=== PATIENT | female | born 1935 | race Asian ===

== ENCOUNTER 2020-04-27 21:34 | Inpatient (IN) | payer MEDICARE ==
[~2020-04-27] VITALS: Ht 137.2 cm; Wt 40.6 kg
[2020-04-27 21:35] VITALS: BP 127/69
--- NOTE | 2020-04-27 21:41 | NUR ---
ED Nurse Note: Patient was brought in by ambulance RA [id number] from home with complaints of fall. Per ems patient was pointing her left hip. Per EMS patient did not hit her head. Patient is alert but maori speaking only. Patient placed on monitor bed
--- NOTE | 2020-04-27 21:44 | NUR ---
ED Nurse Note: ERMD at bedside
--- NOTE | 2020-04-27 21:44 | NUR ---
ED Nurse Note: Xray at bedside
--- NOTE | 2020-04-27 21:48 | Emergency Room Report ---
History of Present Illness General Chief Complaint: Multiple Trauma/Fall Source: Patient, EMS Present Illness HPI This is an 84-year-old Khmer speaking female with history of high blood pressure. She presents with chief complaint of left hip pain. She was getting dressed and slipped and fell onto the left hip. She did not hit her head. Unable to get up and walk because of the pain. Pain is to the left hip. Worse with movement. Better with rest. No other injury. No nausea no vomiting. With movement pain is 8 out of 10. With rest pain is 2 out of 10. Allergies: Coded Allergies: UNABLE TO ASSESS (Unverified , 04/27/20) PATIENT IS BULGARIAN SPEAKING COVID-19 Screening Contact w/high risk pt: No Recent Travel to affected area: No Experienced COVID-19 symptoms?: No COVID-19 Testing performed [employer]LE [employer]: No Patient History Past Medical History: see triage record, old chart reviewed, HTN Past Surgical History: none Pertinent Family History: none Last Menstrual Period: NA Now: No Immunizations: other Reviewed Nursing Documentation: PMH: Agreed; PSxH: Agreed Nursing Documentation-PMH Past Medical History: No History, Except For Hx Cerebrovascular Accident: Yes Review of Systems Eye: Denies: eye pain, blurred vision ENT: Denies: ear pain, nose congestion, throat swelling Respiratory: Denies: cough, shortness of breath Cardiovascular: Denies: chest pain, palpitations Gastrointestinal: Denies: abdominal pain, diarrhea, nausea, vomiting Musculoskeletal: Reports: joint pain; Denies: back pain Skin: Denies: rash Neurological: Denies: headache, numbness Endocrine: Denies: increased thirst, increased urine Hematologic/Lymphatic: Denies: easy bruising All Other Systems: negative except mentioned in HPI Physical Exam Vital Signs Date Time Temp Pulse Resp B/P (MAP) Pulse Ox O2 Delivery O2 Flow Rate FiO2 04/27/20 21:29 98.2 90 16 127/69 (88) 88 Room Air Vitals normal Sp02 EP Interpretation: reviewed, normal General Appearance: well appearing, no apparent distress, alert, thin Head: normocephalic, atraumatic Eyes: bilateral eye PERRL, bilateral eye EOMI ENT: hearing grossly normal, normal pharynx Neck: full range of motion, supple, no meningismus Respiratory: chest non-tender, lungs clear, normal breath sounds Cardiovascular #1: regular rate, rhythm, no murmur Gastrointestinal: normal bowel sounds, non tender, no mass, no organomegaly, no bruit, non-distended Musculoskeletal: back normal, tender - Tenderness to left hip Psychiatric: mood/affect normal Medical Decision Making Diagnostic Impression: Primary Impression: Pelvic ring fracture Qualified Codes: S32.810A - Multiple fractures of pelvis with stable disruption of pelvic ring, initial encounter for closed fracture ER Course This is an elderly Khmer speaking female fell with a pelvic fracture. No hip fracture. Because of her pain she is unable to ambulate. Will admit for further work-up with physical therapy and possible rehab placement. I discussed the case with Dr. Naik for admission. Other X-Ray Diagnostic Results Other X-Ray Diagnostic Results : X-Ray ordered: Left hip x-rays # of Views/Limited Vs Complete: 3 View Indication: Pain EP Interpretation: Yes Interpretation: no dislocation, no soft tissue swelling, other - left pubic rami frx. Impression: Other - pelvic frx Electronically Signed by: Santiago Chavira MD CT/MRI/US Diagnostic Results CT/MRI/US Diagnostic Results : Imaging Test Ordered: CT pelvis Impression Read by radiologist. Nondisplaced fracture of the left superior pubic ramus. Comminuted fracture of the midshaft of the left inferior pubic ramus. Nondisplaced left sacral alar fracture. Last Vital Signs Date Time Temp Pulse Resp B/P (MAP) Pulse Ox O2 Delivery O2 Flow Rate FiO2 04/27/20 21:29 98.2 90 16 127/69 (88) 88 Room Air Status: improved Disposition: ADMITTED INPATIENT Condition: Serious Santiago Chavira MD Apr 27, 2020 21:48
[2020-04-27] MEDS ORDERED: TENORMIN100 MG ORAL (21:59)
[2020-04-27] MEDS ORDERED: AMLODIPINE BESY10 MG ORAL (21:59)
[2020-04-27] MEDS ORDERED: Morphine Sulfate 2mg/ml Inj(IV/IM USE ONLY) IVP ONE (22:00)
--- NOTE | 2020-04-27 22:38 | Diagnostic Imaging Report ---
EXAM: CT Pelvis Without Intravenous Contrast CLINICAL HISTORY: TRAUMA TECHNIQUE: Axial computed tomography images of the pelvis without intravenous contrast. CTDI is 4.1 mGy and DLP is 129.2 mGy-cm. One or more of the following dose reduction techniques were used: automated exposure control, adjustment of the mA and/or kV according to patient size, use of iterative reconstruction technique.. Coronal and sagittal reconstructions are performed COMPARISON: Pelvic radiographs from today FINDINGS: Bowel: Unremarkable. No obstruction. No mucosal thickening. Appendix: No findings to suggest acute appendicitis. Intraperitoneal space: Unremarkable. No free air. No significant fluid collection. Bladder: Unremarkable. No stones. Reproductive: Unremarkable as visualized. Bones/joints: Nondisplaced fracture of left superior pubic ramus near pubic symphysis, mildly impacted. Comminuted fracture of midshaft of left inferior pubic ramus with 3 mm displacement. Nondisplaced left sacral alar fracture on series 12 image 24. No extension to neuroforamen. Osteopenia. Grade 1 anterolisthesis of L4 on L5 No dislocation. Soft tissues: No significant soft tissue hematoma. Vasculature: Small amount of atherosclerotic calcifications. Lymph nodes: Unremarkable. No enlarged lymph nodes. IMPRESSION: 1. Nondisplaced fracture of left superior pubic ramus near pubic symphysis, mildly impacted. 2. Comminuted fracture of midshaft of left inferior pubic ramus with 3 mm displacement. 3. Nondisplaced left sacral alar fracture
[2020-04-27 22:49] VITALS: BP 129/61
[2020-04-27 22:52] LABS: APPEARANCE,URINE CLEAR; BILIRUBIN, URINE NEGATIVE (NEGATIVE); COLOR,URINE PALE YELLOW; GLUCOSE, URINE (UA) NEGATIVE (NEGATIVE); KETONES,URINE NEGATIVE (NEGATIVE); LEUKOCYTE ESTERASE ,URINE NEGATIVE (NEGATIVE); NITRITE,URINE NEGATIVE (NEGATIVE); PH,URINE 7 (4.5-8.0); PROTEIN,URINE NEGATIVE (NEGATIVE); UROBILINOGEN,URINE NORMAL MG/DL (0.0-1.0)
[2020-04-27 22:52] LABS: EOSINOPHILS % (AUTO) 0.8 % (0.0-3.0); HEMATOCRIT 40.5 % (37.0-47.0); HEMOGLOBIN 12.9 G/DL (12.0-16.0); LYMPHOCYTES % (AUTO) 19.4 % (20.0-45.0); MEAN CORPUSCULAR VOLUME 90 FL (80-99); MONOCYTES % (AUTO) 4.8 % (1.0-10.0); NEUTROPHILS % (AUTO) 74.2 % (45.0-75.0); PLATELET COUNT 205 K/UL (150-450); RED BLOOD COUNT 4.48 M/UL (4.20-5.40); WHITE BLOOD COUNT 7.3 K/UL (4.8-10.8)
[2020-04-27 22:58] LABS: ANION GAP 10 mmol/L (5-15); BLOOD UREA NITROGEN 12 mg/dL (7-18); CALCIUM 8.5 MG/DL (8.5-10.1); CARBON DIOXIDE 27 MMOL/L (21-32); CHLORIDE 103 MMOL/L (98-107); CREATININE 0.8 MG/DL (0.55-1.30); SODIUM 140 MMOL/L (136-145)
--- NOTE | 2020-04-27 23:15 | NUR ---
patient's daughter, gary [phone]
--- NOTE | 2020-04-27 23:55 | NUR ---
ED Nurse Note: Called and gave report to Ciara ROBERTS.
--- NOTE | 2020-04-27 23:58 | NUR ---
ED Nurse Note: PATIENT LAST BOWEL MOVEMENT WAS THIS MORNING, PATIENT CLEARED FOR TRANSPORT TO FLOOR WITH BELONGINGS SHEET.
[2020-04-28] VITALS (7 sets, daily range): BP systolic 115–141; BP diastolic 62–78
[2020-04-28] MEDS ORDERED: Morphine Sulfate 2mg/ml Inj(IV/IM USE ONLY) IVP PRN
--- NOTE | 2020-04-28 | NUR ---
NURSE NOTES: Received phone report from BRENDA Wyatt RN.
--- NOTE | 2020-04-28 00:10 | NUR ---
NURSE NOTES: Patient admitted to 301-1 via gurney, transferred to bed with staff assistance. German speaking nurse here assisting with history taking. Patient is alert and oriented x4. Oriented to room and call light. No skin issues noted. O2 on 2L NC. Jean-Baptiste catheter was placed in ER, draining clear yellow urine. Saline lock on RAC, intact. Bed in low position, locked, side rails up x2, bed alarm on, call light within reach. Encouraged to call as needed. Will contact physician for admitting orders.
[2020-04-28] MEDS ORDERED: HYDROcodone/Acetamin 10/325 tab ORAL PRN (00:45)
[2020-04-28] MEDS: HYDROcodone/Acetamin 5/325 tab ORAL PRN ×3 (01:52→21:29)
[2020-04-28 05:52] LABS: BASOPHILS % (AUTO) 0.3 % (0.0-2.0); EOSINOPHILS % (AUTO) 0.7 % (0.0-3.0); HEMATOCRIT 34.9 % (37.0-47.0); HEMOGLOBIN 12.6 G/DL (12.0-16.0); LYMPHOCYTES % (AUTO) 10.9 % (20.0-45.0); MEAN CORPUSCULAR VOLUME 83 FL (80-99); MONOCYTES % (AUTO) 5.3 % (1.0-10.0); NEUTROPHILS % (AUTO) 82.8 % (45.0-75.0); PLATELET COUNT 183 K/UL (150-450); RED BLOOD COUNT 4.21 M/UL (4.20-5.40); RED CELL DISTRIBUTION WIDTH 11.8 % (11.6-14.8); WHITE BLOOD COUNT 9.5 K/UL (4.8-10.8)
--- NOTE | 2020-04-28 06:00 | NUR ---
NURSE NOTES: Patient dozed off and on last night. Still has pain, but refused pain medication.
[2020-04-28 06:04] LABS: ANION GAP 7 mmol/L (5-15); BLOOD UREA NITROGEN 11 mg/dL (7-18); CALCIUM 7.9 MG/DL (8.5-10.1); CARBON DIOXIDE 28 MMOL/L (21-32); CHLORIDE 104 MMOL/L (98-107); CREATININE 0.7 MG/DL (0.55-1.30); PHOSPHORUS 3.7 MG/DL (2.5-4.9); POTASSIUM 4.2 MMOL/L (3.5-5.1); SODIUM 139 MMOL/L (136-145)
--- NOTE | 2020-04-28 07:15 | NUR ---
HAND-OFF: Report given to ARMANDO Villegas. Rounds done.
--- NOTE | 2020-04-28 07:46 | NUR ---
NURSE NOTES: Patient awake and alert, pedal pulses bilateral feet strong,feet warm to touch.patient sitting up in bed patient ate breakfast.Call light within reach.
--- NOTE | 2020-04-28 08:54 | Diagnostic Imaging Report ---
Indication: Pain, status post fall Technique: 2 views of the left hip Comparison: none Findings: There is a nondisplaced fracture of the left inferior pubic ramus. There is more questionable irregularity of the superior pubic ramus. No evidence of hip fracture. There are mild degenerative proliferative changes of the left hip joint Impression: Positive for left inferior and possibly superior rami fractures This agrees with the preliminary interpretation reported by the emergency room physician in the electronic medical record
--- NOTE | 2020-04-28 12:41 | NUR ---
CASE MANAGEMENT: INITIAL REVIEW 84YR OLD FEMALE BIBA HOME CC: FALL SI:PELVIC RING FRACTURE 98.3 90 16 127/69 88% ON RA BG 128 IS:IV MORPHINE SULFATE X1 IV ZOFRAN X1 XRAY Hip Routine 2v+ w/Pelv-L: Pain, status post fall-Positive for left inferior and possibly superior rami fractures CT Pelvis no Contrast: TRAUMA- Nondisplaced fracture of left superior pubic ramus near pubic symphysis, mildly impacted. Comminuted fracture of midshaft of left inferior pubic ramus with 3 mm displacement. Nondisplaced left sacral alar fracture \: 3E MED SURG UNIT PLAN: ORTHO CONSULT PT EVAL AND THERAPY CASE MANAGEMENT: REVIEW 04/28/20 SI:PELVIC RING FRACTURE 98.0 77 18 141/70 96% ON 2L NC CA+ 7.9 IS:NORVASC PO QD TENORMIN PO QD NORCO PO Q6HR/PRN \: 3E MED SURG UNIT PLAN: ORTHO CONSULT PT EVAL AND THERAPY PAIN MANAGEMENT AM LABS
--- NOTE | 2020-04-28 13:26 | Consultation ---
History of Present Illness General Chief Complaint: Multiple Trauma/Fall Present Illness HPI Ms. Castaneda is a 84 year old female with HTN presenting with left hip pain after slipping and falling at home while changing clothes. denies any head trauma or LOC. Lives with and kids. Currently complaining of pain, mostly with ambulation, minimal at rest. denies any other symptoms such as cough, f/c, n/v, chest pain, SOB, abd pain. Allergies: Coded Allergies: No Known Allergies (Unverified , 04/27/20) Medication History Scheduled Amlodipine Besylate* (Amlodipine Besylate*), 10 MG ORAL DAILY, (Reported) Atenolol (Tenormin), 50 MG ORAL DAILY, (Reported) Patient History Healthcare decision maker Resuscitation status Advanced Directive on File Review of Systems All Other Systems: negative except mentioned in HPI Physical Exam General Appearance: WD/WN, no apparent distress Lines, tubes and drains: peripheral HEENT: normocephalic, atraumatic, anicteric Neck: non-tender, normal alignment, supple Respiratory/Chest: chest wall non-tender, lungs clear Cardiovascular/Chest: normal peripheral pulses, normal rate, regular rhythm Abdomen: normal bowel sounds, non tender, soft Extremities: non-tender Skin Exam: normal pigmentation Neurologic: alert, oriented x 3 Last 24 Hour Vital Signs Date Time Temp Pulse Resp B/P (MAP) Pulse Ox O2 Delivery O2 Flow Rate FiO2 04/28/20 12:00 98.8 79 18 128/64 (85) 98 04/28/20 09:00 Room Air 04/28/20 08:41 81 137/64 04/28/20 08:41 81 137/64 04/28/20 08:40 81 137/64 (88) 04/28/20 08:00 98.0 77 18 141/70 (93) 96 04/28/20 04:00 98.1 77 18 115/62 (79) 94 04/28/20 00:30 Nasal Cannula 2.0 04/28/20 00:15 97.7 84 18 138/78 (98) 96 88 04/27/20 23:56 98.0 74 18 136/64 99 Room Air 2.0 95 74 04/27/20 22:49 98.0 79 20 129/61 98 Room Air 2.0 04/27/20 22:49 90 16 Room Air 95 04/27/20 22:43 98.0 04/27/20 21:35 98.2 16 127/69 88 Room Air 04/27/20 21:29 98.2 90 16 127/69 (88) 88 Room Air Intake and Output 04/27/20 04/28/20 19:00 07:00 Intake Total 240 ml Output Total 750 ml Balance -510 ml Intake Oral 240 ml Output Urine Total 750 ml # Voids 1 Laboratory Tests Test 04/27/20 22:30 04/27/20 22:43 04/28/20 05:25 White Blood Count 7.3 K/UL (4.8-10.8) 9.5 K/UL (4.8-10.8) Red Blood Count 4.48 M/UL (4.20-5.40) 4.21 M/UL (4.20-5.40) Hemoglobin 12.9 G/DL (12.0-16.0) 12.6 G/DL (12.0-16.0) Hematocrit 40.5 % (37.0-47.0) 34.9 % (37.0-47.0) L Mean Corpuscular Volume 90 FL (80-99) 83 FL (80-99) Mean Corpuscular Hemoglobin 28.8 PG (27.0-31.0) 30.0 PG (27.0-31.0) Mean Corpuscular Hemoglobin Concent 31.9 G/DL (32.0-36.0) L 36.1 G/DL (32.0-36.0) H Red Cell Distribution Width 13.0 % (11.6-14.8) 11.8 % (11.6-14.8) Platelet Count 205 K/UL (150-450) 183 K/UL (150-450) Mean Platelet Volume 8.6 FL (6.5-10.1) 6.5 FL (6.5-10.1) Neutrophils (%) (Auto) 74.2 % (45.0-75.0) 82.8 % (45.0-75.0) H Lymphocytes (%) (Auto) 19.4 % (20.0-45.0) L 10.9 % (20.0-45.0) L Monocytes (%) (Auto) 4.8 % (1.0-10.0) 5.3 % (1.0-10.0) Eosinophils (%) (Auto) 0.8 % (0.0-3.0) 0.7 % (0.0-3.0) Basophils (%) (Auto) 1.0 % (0.0-2.0) 0.3 % (0.0-2.0) Sodium Level 140 MMOL/L (136-145) 139 MMOL/L (136-145) Potassium Level 4.0 MMOL/L (3.5-5.1) 4.2 MMOL/L (3.5-5.1) Chloride Level 103 MMOL/L (98-107) 104 MMOL/L (98-107) Carbon Dioxide Level 27 MMOL/L (21-32) 28 MMOL/L (21-32) Anion Gap 10 mmol/L (5-15) 7 mmol/L (5-15) Blood Urea Nitrogen 12 mg/dL (7-18) 11 mg/dL (7-18) Creatinine 0.8 MG/DL (0.55-1.30) 0.7 MG/DL (0.55-1.30) Estimat Glomerular Filtration Rate > 60 mL/min (>60) > 60 mL/min (>60) Glucose Level 128 MG/DL (74-106) H 106 MG/DL (74-106) Calcium Level 8.5 MG/DL (8.5-10.1) 7.9 MG/DL (8.5-10.1) L Urine Color Pale yellow Urine Appearance Clear Urine pH 7 (4.5-8.0) Urine Specific [place] 1.010 (1.005-1.035) Urine Protein Negative (NEGATIVE) Urine Glucose (UA) Negative (NEGATIVE) Urine Ketones Negative (NEGATIVE) Urine Blood Negative (NEGATIVE) Urine Nitrite Negative (NEGATIVE) Urine Bilirubin Negative (NEGATIVE) Urine Urobilinogen Normal MG/DL (0.0-1.0) Urine Leukocyte Esterase Negative (NEGATIVE) Urine RBC 0-2 /HPF (0 - 2) Urine WBC 0 /HPF (0 - 2) Urine Squamous Epithelial Cells Few /LPF (NONE/OCC) Urine Bacteria None /HPF (NONE) Phosphorus Level 3.7 MG/DL (2.5-4.9) Magnesium Level 2.1 MG/DL (1.8-2.4) Height (Feet): 4 Height (Inches): 6.00 Weight (Pounds): 90 Medications Current Medications Medications (Trade) Dose Ordered Sig/Blu Route PRN Reason Start Time Stop Time Status Last Admin Dose Admin Acetaminophen (Tylenol) 650 mg Q6H PRN ORAL Mild Pain (Pain Scale 1-3) 04/28/20 01:15 05/28/20 01:14 Acetaminophen/ Hydrocodone Bitart ([place] 10/325) 1 tab Q6H PRN ORAL Pain Scale (6-10) 04/28/20 00:45 05/05/20 00:44 Acetaminophen/ Hydrocodone Bitart ([place] 5/325) 1 tab Q6H PRN ORAL For Pain 04/28/20 00:45 05/05/20 00:44 04/28/20 08:46 Amlodipine Besylate (Norvasc) 10 mg DAILY ORAL 04/28/20 09:00 05/28/20 08:59 04/28/20 08:41 Atenolol (Tenormin) 50 mg DAILY ORAL 04/28/20 09:00 05/28/20 08:59 04/28/20 08:41 Assessment/Plan Diagnosis [place] I: #s/p fall #left hip pain #Left pubic fracture #Decontioning #HTN -imaging + for left pelvic rami fracture, superior and inferior. -ortho consulted -> non-surgical management. -early mobilization with PT. -f/u xrays in 3 weeks. -contionue home amlodipine 10 daily -continue home atenolol 5 daily Time spent on encounter, 70 mins, 35 mins spent on counseling and coordination of care. Celio Naik M.D. Apr 28, 2020 13:26
--- NOTE | 2020-04-28 14:04 | NUR ---
DISCHARGE PLANNING: PATIENT REFERRED TO [facility] T:[phone] F: [phone] CM WILL F/U
--- NOTE | 2020-04-28 14:15 | Consultation ---
Consult Note Consult Note patient seen and evaluated. [place] Superior and Inferior pubic rami fax. Stable. non-surgical treatment and early mobilization with PT, 75% weight bearing LLE. F/u for Xrays in 3 weeks. Christopher Segal MD Apr 28, 2020 14:15
--- NOTE | 2020-04-28 14:50 | NUR ---
P.T Note: P.T evaluation completed and tx initiated. Please refer to P.T evaluation for current functional status. Pt is alert, O x 4, pleasant and cooperative. Pt is limited by fear of mobility due to c/o pain in the L hip/groin aggravated by movement initiation which affects mobility performance and independence. Pt currently requires MOD A X 1 and extended time to initiate and complete supine to/from sitting, sitting to/from standing using the FWW. Pt was able to ambulate using the FWW with MIN A X 1 where distance of limited only to 12 ft due to fatigue and pain in the L hip/groin area. Pt should benefit from skilled P.T service to increase mobility independence and safety. Recommend DC to home with follow up home P.T if 24 hr care is available at home otherwise SNF for short term rehab. Thank you for this referral.
--- NOTE | 2020-04-28 17:07 | History and Physical ---
History of Present Illness General Date patient seen: Apr 28, 2020 Reason for Hospitalization: Multiple Trauma/Fall Present Illness HPI Ms. Castaneda is a 84 year old female with HTN presenting with left hip pain after slipping and falling at home while changing clothes. denies any head trauma or LOC. Lives with and kids. Currently complaining of pain, mostly with ambulation, minimal at rest. denies any other symptoms such as cough, f/c, n/v, chest pain, SOB, abd pain. Allergies: Coded Allergies: No Known Allergies (Unverified , 04/27/20) COVID-19 Screening Contact w/high risk pt: No Recent Travel to affected area: No Experienced COVID-19 symptoms?: No Medication History Scheduled Amlodipine Besylate* (Amlodipine Besylate*), 10 MG ORAL DAILY, (Reported) Atenolol (Tenormin), 50 MG ORAL DAILY, (Reported) Patient History Healthcare decision maker Resuscitation status Advanced Directive on File Review of Systems Constitutional: Denies: no symptoms, see HPI, chills, sweats, fever, malaise, weakness, other Eye: Denies: no symptoms, see HPI, eye pain, blurred vision, tearing, double vision, nose pain, nose congestion, acuity changes, discharge, other ENT: Denies: no symptoms, see HPI, ear pain, ear discharge, nose pain, nose congestion, throat pain, throat swelling, mouth pain, hearing loss, nasal discharge, other Respiratory: Denies: no symptoms, see HPI, cough, orthopnea, shortness of breath, stridor, wheezing, [place], sputum, other Cardiovascular: Denies: no symptoms, see HPI, chest pain, edema, palpitations, syncope, PND, other Gastrointestinal: Denies: no symptoms, see HPI, abdominal pain, constipation, diarrhea, nausea, vomiting, melena, hematemesis, other Genitourinary: Denies: no symptoms, see HPI, discharge, dysuria, frequency, hematuria, pain, retention, incontinence, urgency, vag bleed/dc, other Musculoskeletal: Reports: no symptoms, see HPI, back pain, gout, joint pain, joint swelling, muscle pain, muscle stiffness, other - left hip pain Skin: Denies: no symptoms, see HPI, rash, change in color, change in hair/nails , dryness, lesions, other Psychiatric: Denies: no symptoms, see HPI, prior hx, anxiety, depressed feelings, emotional problems, SI, HI, hallucinations, other Neurological: Denies: no symptoms, see HPI, headache, numbness, paresthesia, seizure, tingling, tremors, focal weakness, syncope, dizziness, other Endocrine: Denies: no symptoms, see HPI, excessive sweating, flushing, intolerance to temperature, increased thirst, increased urine, unexplained weight loss, other Hematologic/Lymphatic: Denies: no symptoms, see HPI, anemia, blood clots, easy bleeding, easy bruising, swollen glands, diathesis, other Physical Exam General Appearance: no apparent distress, alert HEENT: normocephalic, atraumatic Neck: supple Respiratory/Chest: lungs clear, normal breath sounds, no respiratory distress Cardiovascular/Chest: normal rate, regular rhythm Abdomen: non tender, soft Extremities: other - left hip tenderness, weakness due to pain Neurologic: alert, oriented x 3 Last 24 Hour Vital Signs Date Time Temp Pulse Resp B/P (MAP) Pulse Ox O2 Delivery O2 Flow Rate FiO2 04/28/20 12:00 98.8 79 18 128/64 (85) 98 04/28/20 09:00 Room Air 04/28/20 08:41 81 137/64 04/28/20 08:41 81 137/64 04/28/20 08:40 81 137/64 (88) 04/28/20 08:00 98.0 77 18 141/70 (93) 96 04/28/20 04:00 98.1 77 18 115/62 (79) 94 04/28/20 00:30 Nasal Cannula 2.0 04/28/20 00:15 97.7 84 18 138/78 (98) 96 88 04/27/20 23:56 98.0 74 18 136/64 99 Room Air 2.0 95 74 04/27/20 22:49 98.0 79 20 129/61 98 Room Air 2.0 04/27/20 22:49 90 16 Room Air 95 04/27/20 22:43 98.0 04/27/20 21:35 98.2 16 127/69 88 Room Air 04/27/20 21:29 98.2 90 16 127/69 (88) 88 Room Air Intake and Output 04/27/20 04/28/20 19:00 07:00 Intake Total 240 ml Output Total 750 ml Balance -510 ml Intake Oral 240 ml Output Urine Total 750 ml # Voids 1 Laboratory Tests Test 04/27/20 22:30 04/27/20 22:43 04/28/20 05:25 White Blood Count 7.3 K/UL (4.8-10.8) 9.5 K/UL (4.8-10.8) Red Blood Count 4.48 M/UL (4.20-5.40) 4.21 M/UL (4.20-5.40) Hemoglobin 12.9 G/DL (12.0-16.0) 12.6 G/DL (12.0-16.0) Hematocrit 40.5 % (37.0-47.0) 34.9 % (37.0-47.0) L Mean Corpuscular Volume 90 FL (80-99) 83 FL (80-99) Mean Corpuscular Hemoglobin 28.8 PG (27.0-31.0) 30.0 PG (27.0-31.0) Mean Corpuscular Hemoglobin Concent 31.9 G/DL (32.0-36.0) L 36.1 G/DL (32.0-36.0) H Red Cell Distribution Width 13.0 % (11.6-14.8) 11.8 % (11.6-14.8) Platelet Count 205 K/UL (150-450) 183 K/UL (150-450) Mean Platelet Volume 8.6 FL (6.5-10.1) 6.5 FL (6.5-10.1) Neutrophils (%) (Auto) 74.2 % (45.0-75.0) 82.8 % (45.0-75.0) H Lymphocytes (%) (Auto) 19.4 % (20.0-45.0) L 10.9 % (20.0-45.0) L Monocytes (%) (Auto) 4.8 % (1.0-10.0) 5.3 % (1.0-10.0) Eosinophils (%) (Auto) 0.8 % (0.0-3.0) 0.7 % (0.0-3.0) Basophils (%) (Auto) 1.0 % (0.0-2.0) 0.3 % (0.0-2.0) Sodium Level 140 MMOL/L (136-145) 139 MMOL/L (136-145) Potassium Level 4.0 MMOL/L (3.5-5.1) 4.2 MMOL/L (3.5-5.1) Chloride Level 103 MMOL/L (98-107) 104 MMOL/L (98-107) Carbon Dioxide Level 27 MMOL/L (21-32) 28 MMOL/L (21-32) Anion Gap 10 mmol/L (5-15) 7 mmol/L (5-15) Blood Urea Nitrogen 12 mg/dL (7-18) 11 mg/dL (7-18) Creatinine 0.8 MG/DL (0.55-1.30) 0.7 MG/DL (0.55-1.30) Estimat Glomerular Filtration Rate > 60 mL/min (>60) > 60 mL/min (>60) Glucose Level 128 MG/DL (74-106) H 106 MG/DL (74-106) Calcium Level 8.5 MG/DL (8.5-10.1) 7.9 MG/DL (8.5-10.1) L Urine Color Pale yellow Urine Appearance Clear Urine pH 7 (4.5-8.0) Urine Specific [place] 1.010 (1.005-1.035) Urine Protein Negative (NEGATIVE) Urine Glucose (UA) Negative (NEGATIVE) Urine Ketones Negative (NEGATIVE) Urine Blood Negative (NEGATIVE) Urine Nitrite Negative (NEGATIVE) Urine Bilirubin Negative (NEGATIVE) Urine Urobilinogen Normal MG/DL (0.0-1.0) Urine Leukocyte Esterase Negative (NEGATIVE) Urine RBC 0-2 /HPF (0 - 2) Urine WBC 0 /HPF (0 - 2) Urine Squamous Epithelial Cells Few /LPF (NONE/OCC) Urine Bacteria None /HPF (NONE) Phosphorus Level 3.7 MG/DL (2.5-4.9) Magnesium Level 2.1 MG/DL (1.8-2.4) Height (Feet): 4 Height (Inches): 6.00 Weight (Pounds): 90 Medications Current Medications Medications (Trade) Dose Ordered Sig/Blu Route PRN Reason Start Time Stop Time Status Last Admin Dose Admin Acetaminophen (Tylenol) 650 mg Q6H PRN ORAL Mild Pain (Pain Scale 1-3) 6/9/20 01:15 05/28/20 01:14 Acetaminophen/ Hydrocodone Bitart ([place] 10/325) 1 tab Q6H PRN ORAL Pain Scale (6-10) 04/28/20 00:45 05/05/20 00:44 Acetaminophen/ Hydrocodone Bitart ([place] 5/325) 1 tab Q6H PRN ORAL For Pain 04/28/20 00:45 05/05/20 00:44 04/28/20 08:46 Amlodipine Besylate (Norvasc) 10 mg DAILY ORAL 04/28/20 09:00 05/28/20 08:59 04/28/20 08:41 Atenolol (Tenormin) 50 mg DAILY ORAL 04/28/20 09:00 05/28/20 08:59 04/28/20 08:41 Assessment/Plan Problem List: (1) HTN (hypertension) ICD Codes: I10 - Essential (primary) hypertension SNOMED: 77303090 (2) Pelvic ring fracture ICD Codes: S32.810A - Multiple fractures of pelvis with stable disruption of pelvic ring, initial encounter for closed fracture SNOMED: 79167362 Qualifiers: Qualified Codes: S32.810A - Multiple fractures of pelvis with stable disruption of pelvic ring, initial encounter for closed fracture (3) Physical deconditioning ICD Codes: R53.81 - Other malaise SNOMED: 65413294269270 (4) Fall ICD Codes: W19.XXXA - Unspecified fall, initial encounter SNOMED: 8906703, 947819567 Status: stable Assessment/Plan: Ms. Castaneda is a 84 year old female with hx of HTN, presenting with left hip pain s/ p fall, found to have left pubic fx. #s/p fall #left hip pain #Left pubic fracture #Decontioning -imaging + for left pelvic rami fracture, superior and inferior. -ortho consulted -> non-surgical management. -early mobilization with PT. -75% WBAT LLE -f/u xrays in 3 weeks. #HTN -contionue home amlodipine 10 daily -continue home atenolol 5 daily Time spent on encounter, 72 mins, 37 mins spent on counseling and coordination of care. Extra 36 mins spent on chart review of EMR records, including physician documentation, labs, imaging, meds. Time of note doesn't reflect time of encounter. Marcin Mclean MD Apr 28, 2020 17:07
--- NOTE | 2020-04-28 18:00 | NUR ---
NURSE NOTES:Jean-Baptiste catheter was discontinued,will monitor out put.Call light within reach.
--- NOTE | 2020-04-28 19:40 | NUR ---
HAND-OFF: Report given to Ciara ROBERTS.aware of fall risk..
--- NOTE | 2020-04-28 19:42 | NUR ---
NURSE NOTES: Received report from ARMANDO Metzger and ARMANDO Villegas. Patient resting in bed.
--- NOTE | 2020-04-28 20:05 | NUR ---
NURSE NOTES: Patient alert and oriented x4. Armenian speaking nurse assisting in patient care. Patient helped with bedpan. Voided 300 cc clear yellow urine.
--- NOTE | 2020-04-28 20:45 | Consultation ---
DATE OF CONSULTATION: 04/28/2020 ORTHOPEDIC CONSULTATION CONSULTING PHYSICIAN: Christopher Segal MD. REASON FOR CONSULTATION: Left-sided pelvic fracture. BRIEF HISTORY: The patient is a very pleasant 84-year-old Maori-speaking female with history of high blood pressure, who had a mechanical fall. Apparently, she was getting dressed and slipped and fell on her left hip. She did not hit her head. There was no loss of consciousness. There was no syncopal episode by history. She was unable to get up and walk. She was brought to the ER and she was evaluated. Initial pelvic x-ray did not show a hip fracture, but showed superior inferior pubic rami fracture. CT scan confirmed superior inferior pubic rami fracture and nondisplaced sacral ala fracture. There was no evidence of hip fracture. Orthopedic consultation was obtained. PAST MEDICAL HISTORY: Significant for hypertension. PAST SURGICAL HISTORY: None. MEDICATIONS: None. ALLERGIES: No known drug allergies. SOCIAL HISTORY: She does not smoke or drink. REVIEW OF SYSTEMS: Noncontributory. PHYSICAL EXAMINATION: Examination of left hip and pelvis reveals that there is no shortening. There is no external rotation. There is pain with flexion, extension, abduction, internal and external rotation. Palpation over the pelvis reveals some tenderness over the pelvic area on the left side. Neurological examination is intact. X-RAYS: X-rays of left pelvis and hip are reviewed. There is evidence of superior inferior pubic rami fracture. There is no evidence of hip fracture. There is osteopenia that could be appreciated. CT scan is reviewed. There is evidence of superior inferior pubic rami fracture and a small nondisplaced sacral ala fracture. This is a stable fracture pattern. IMPRESSION: Left-sided superior inferior pubic rami fracture and a nondisplaced sacral ala fracture, small, stable. PLAN: At this time, I had discussion with the patient and explained to her my findings. We will proceed with nonoperative treatment. We recommend early mobilization with partial weightbearing on the left lower extremity. She can use a walker to get around. This should go on to healing over the next 6 to 12 weeks. I recommend a followup x-ray in approximately 3 weeks to assess pelvic stability. All questions were answered. We will start her with physical therapy. Christopher Erika Segal DR: Tara JOB#: [id number] CC:
[2020-04-29] VITALS: BP 116/56
--- NOTE | 2020-04-29 00:51 | NUR ---
NURSE NOTES: Patient asleep.
[2020-04-29] MEDS: HYDROcodone/Acetamin 5/325 tab ORAL PRN ×3 (03:14→16:39)
[2020-04-29 04:00] VITALS: BP 140/73
[2020-04-29 06:36] LABS: BASOPHILS % (AUTO) 0.5 % (0.0-2.0); EOSINOPHILS % (AUTO) 2.9 % (0.0-3.0); HEMATOCRIT 35.4 % (37.0-47.0); HEMOGLOBIN 12.7 G/DL (12.0-16.0); LYMPHOCYTES % (AUTO) 20.3 % (20.0-45.0); MEAN CORPUSCULAR VOLUME 83 FL (80-99); MONOCYTES % (AUTO) 8.1 % (1.0-10.0); NEUTROPHILS % (AUTO) 68.2 % (45.0-75.0); PLATELET COUNT 162 K/UL (150-450); RED BLOOD COUNT 4.27 M/UL (4.20-5.40); RED CELL DISTRIBUTION WIDTH 11.4 % (11.6-14.8); WHITE BLOOD COUNT 8.9 K/UL (4.8-10.8)
[2020-04-29 06:53] LABS: ANION GAP 8 mmol/L (5-15); BLOOD UREA NITROGEN 10 mg/dL (7-18); CALCIUM 8.2 MG/DL (8.5-10.1); CARBON DIOXIDE 29 MMOL/L (21-32); CHLORIDE 102 MMOL/L (98-107); CREATININE 0.8 MG/DL (0.55-1.30); PHOSPHORUS 3.6 MG/DL (2.5-4.9); POTASSIUM 4.2 MMOL/L (3.5-5.1); SODIUM 139 MMOL/L (136-145)
--- NOTE | 2020-04-29 07:15 | NUR ---
HAND-OFF: Report given to ARMANDO Victoria. Rounds done.
[2020-04-29 08:00] VITALS: BP 139/67
--- NOTE | 2020-04-29 08:43 | NUR ---
NURSE NOTES: received report from ARMANDO Urbina. patient in bed. a&Ox4, verbally responsive. difficulty hearing. no respiratory distress noted. pain on left hip. waked with PT. 75% wb on left leg. IV on RAC20 intact. bed in the lowest position and locked. call light within reach. will continue to provide plan of care.
--- NOTE | 2020-04-29 10:02 | NUR ---
HOME HEALTH INFO FOR KALANI López from [facility] requested to fax the paperwork to [phone] telephone #:[phone]
--- NOTE | 2020-04-29 10:30 | NUR ---
DISCHARGE PLANNING: PATIENT REFERRED TO [facility] T: [phone] F: [phone] CM WILL F/U
--- NOTE | 2020-04-29 10:44 | NUR ---
CASE MANAGEMENT: REVIEW 04/29/20 SI:PELVIC RING FRACTURE 98.0 83 20 139/67 91% ON RA CA+ 8.2 IS:NORVASC PO QD TENORMIN PO QD NORCO PO Q6HR/PRN \: 3E MED SURG UNIT PLAN: NO PLANS FOR SURGERY DC PLANNING: HOME WITH HOME HEALTH
[2020-04-29 12:00] VITALS: BP 121/61
--- NOTE | 2020-04-29 13:24 | General Progress Note ---
Assessment/Plan Status: stable Assessment/Plan: #s/p fall #left hip pain #Left pubic fracture #Decontioning #HTN -imaging + for left pelvic rami fracture, superior and inferior. -ortho consulted -> non-surgical management. -early mobilization with PT. -f/u xrays in 3 weeks. -contionue home amlodipine 10 daily -continue home atenolol 5 daily Time spent on encounter,45 mins, 25 mins spent on counseling and coordination of care. Subjective ROS Limited/Unobtainable: No Constitutional: Denies: no symptoms, chills, diaphoresis, fever, malaise, weakness, other HEENT: Denies: no symptoms, eye pain, blurred vision, tearing, double vision, ear pain, ear discharge, nose pain, nose congestion, throat pain, throat swelling, mouth pain, mouth swelling, other Cardiovascular: Denies: no symptoms, chest pain, edema, irregular heart rate, lightheadedness, palpitations, syncope, other Respiratory: Denies: no symptoms, cough, orthopnea, shortness of breath, SOB with excertion, SOB at rest, sputum, stridor, wheezing, other Gastrointestinal/Abdominal: Denies: no symptoms, abdomen distended, abdominal pain, black stools, tarry stools, blood in stool, constipated, diarrhea, difficulty swallowing, nausea, poor appetite, poor fluid intake, rectal bleeding , vomiting, other Genitourinary: Denies: no symptoms, burning, discharge, frequency, flank pain, hematuria, incontinence, pain, urgency, other Neurologic/Psychiatric: Denies: no symptoms, anxiety, depressed, emotional problems, headache, numbness, paresthesia, pre-existing deficit, seizure, tingling, tremors, weakness, other Endocrine: Denies: no symptoms, excessive sweating, flushing, intolerance to cold, intolerance to heat, increased hunger, increased thirst, increased urine, unexplained weight gain, unexplained weight loss, other Hematologic/Lymphatic: Denies: no symptoms, anemia, easy bleeding, easy bruising, other Allergies: Coded Allergies: No Known Allergies (Unverified , 04/27/20) Objective Last 24 Hour Vital Signs Date Time Temp Pulse Resp B/P (MAP) Pulse Ox O2 Delivery O2 Flow Rate FiO2 04/29/20 12:00 98.8 84 18 121/61 (81) 96 04/29/20 09:48 83 139/67 04/29/20 09:48 83 139/67 04/29/20 09:00 Room Air 04/29/20 08:00 97.5 83 20 139/67 (91) 91 04/29/20 04:00 98.0 83 20 140/73 (95) 96 04/29/20 00:00 99.3 79 20 116/56 (76) 96 04/28/20 21:00 Room Air 04/28/20 20:00 98.1 90 20 130/64 (86) 96 04/28/20 18:37 100.2 79 20 130/68 (88) 98 Intake and Output 04/28/20 04/29/20 19:00 07:00 Intake Total 840 ml Output Total 800 ml Balance 40 ml Intake Oral 840 ml Output Urine Total 800 ml # Voids 3 Laboratory Tests 04/29/20 05:45: White Blood Count 8.9, Red Blood Count 4.27, Hemoglobin 12.7, Hematocrit 35.4L, Mean Corpuscular Volume 83, Mean Corpuscular Hemoglobin 29.7, Mean Corpuscular Hemoglobin Concent 35.8, Red Cell Distribution Width 11.4L, Platelet Count 162, Mean Platelet Volume 6.8, Neutrophils (%) (Auto) 68.2, Lymphocytes (%) (Auto) 20.3, Monocytes (%) (Auto) 8.1, Eosinophils (%) (Auto) 2.9, Basophils (%) (Auto ) 0.5, Sodium Level 139, Potassium Level 4.2, Chloride Level 102, Carbon Dioxide Level 29, Anion Gap 8, Blood Urea Nitrogen 10, Creatinine 0.8, Estimat Glomerular Filtration Rate > 60, Glucose Level 108H, Calcium Level 8.2L, Phosphorus Level 3.6, Magnesium Level 2.0 Height (Feet): 4 Height (Inches): 6.00 Weight (Pounds): 89 General Appearance: WD/WN, no apparent distress EENT: PERRL/EOMI Neck: non-tender Cardiovascular: normal peripheral pulses, normal rate, regular rhythm Respiratory/Chest: chest wall non-tender, lungs clear Abdomen: normal bowel sounds, non tender, soft Extremities: normal range of motion, non-tender Neurologic: alert, oriented x 3 Celio Naik M.D. Apr 29, 2020 13:24
--- NOTE | 2020-04-29 14:30 | Discharge Summary ---
Discharge Summary Hospital Course Date of Admission Apr 27, 2020 at 22:59 Date of Discharge 04/29/2020 Admitting Diagnosis pelvic frx HPI Bobby Castaneda is a 84 year old female with hx of HTN, who fell at home onto her left side while changing clothes, presenting with left hip pain, found to have left pelvic fracture. Consultations orthopedic surgery Procedures none Hospital Course Ms. Castaneda is a 84 year old female with hx of HTN, presenting with left hip pain s/ p fall, found to have left pubic fx. #s/p fall #left hip pain #Left pubic fracture #Decontioning -imaging + for left pelvic rami fracture, superior and inferior. -ortho consulted -> non-surgical management. -early mobilization with PT. -75% WBAT LLE -f/u xrays in 3 weeks. -Home today with home health. #HTN -contionue home amlodipine 10 daily -continue home atenolol 5 daily Time spent on encounter, 72 mins, 37 mins spent on counseling and coordination of care. Extra 36 mins spent on chart review of EMR records, including physician documentation, labs, imaging, meds. Time of note doesn't reflect time of encounter. Discharge Condition Upon Discharge: stable Discharge Vital Signs Last Vital Signs Date Time Temp Pulse Resp B/P (MAP) Pulse Ox O2 Delivery O2 Flow Rate FiO2 04/29/20 12:00 98.8 84 18 121/61 (81) 96 04/29/20 09:00 Room Air 04/28/20 00:30 2.0 04/27/20 23:56 95 Discharge Disposition Patient was discharged to home with Discharge Diagnoses: (1) HTN (hypertension) (2) Pelvic ring fracture (3) Fall (4) Physical deconditioning Marcin Mclean MD Apr 29, 2020 14:30
--- NOTE | 2020-04-29 14:55 | NUR ---
NURSE NOTES: called yehuda connell/daughter regarding discharge. daughter said the patent needs hospital bed and w/c at home. nurse asked [facility], spoke to Maribel, the home health can provide hospital bed and w/c with MD order. notified Dr. ramon michelle and received order of hospital bed and wheel chair by [facility] upon discharge. order noted and carried out. MS yehuda connell is aware, she will cloth picker patient between 1600 to 1700 today.
--- NOTE | 2020-04-29 16:24 | NUR ---
DISCHARGE PLANNING: PATIENT ACCEPTED TO [facility] T: [phone] F: [phone] PATIENT IS DISCHARGE TODAY
--- NOTE | 2020-04-29 17:08 | NUR ---
NURSE NOTES: patient was discharged to home with home health with stable condition. a&Ox4,verbally responsive. no respiratory distress noted. pain when she moves on left hip and leg. daughter at the bedside. provided dc packet. prescription for pain. checked and counted belongings with patient and daughter. obtained sign on documents. daughter will picker box operator new medication on the way home at patient's pharmacy. removed IV and ID band. DOUG Lr assisted patient via W/C to the lobby. patient left hospital safely via daughter's car.
== END 2020-04-29 17:01 | disposition home or self-care (01) | DRG 536 ==
LOC: EDBD 21:34 → EMR 21:52 → 3E 22:59 → EDBEDREQ 23:07
DX: S32.810A Multiple fractures of pelvis with stable disruption of pelvic ring, initial encounter for closed fracture (principal); W01.0XXA Fall on same level from slipping, tripping and stumbling without subsequent striking against object, initial encounter; Y92.009 Unspecified place in unspecified non-institutional (private) residence as the place of occurrence of the external cause; I10 Essential (primary) hypertension
CPT/HCPCS: 36415; 72192; 73502; 80048; 81001; 83735; 84100; 85025; 96374; 96375; 99285; J2405